=== PATIENT | female | born 1985 | race Caucasian/White ===

== ENCOUNTER 2023-08-20 11:41 | Emergency (ER) | payer OTHER ==
[~2023-08-20] VITALS: Ht 170.2 cm; Wt 73.8 kg
[2023-08-20] MEDS ORDERED: FLUO20CA22 (11:56)
[2023-08-20] MEDS ORDERED: OLAN2.5T25 (11:56)
[2023-08-20] MEDS ORDERED: OXCA600T8 (11:56)
[2023-08-20] MEDS ORDERED: PREG150C2 (11:56)
[2023-08-20 13:28] LABS: BASO % 0.8 % (0.0-1.0); EOS # 0.1 10^3/uL (0.0-0.5); EOS % 1.5 % (0.0-3.0); HEMATOCRIT 38.8 % (36.0-47.0); HEMOGLOBIN 12.7 g/dl (12.0-15.5); LYMPH # 2.4 10^3/uL (1.5-5.0); LYMPH % 45.6 % (24.0-44.0); MEAN CORPUSCULAR HEMOGLOBIN 30.4 pg (27.0-33.0); MEAN CORPUSCULAR HGB CONC 32.7 g/dl (32.0-36.5); MEAN CORPUSCULAR VOLUME 92.8 fl (80.0-96.0); MONO # 0.5 10^3/uL (0.0-0.8); MONO % 9.1 % (2.0-8.0); NEUTROPHILS # 2.2 10^3/uL (1.5-8.5); NEUTROPHILS % 42.8 % (36.0-66.0); PLATELET COUNT, AUTOMATED 248 10^3/uL (150-450); RED BLOOD COUNT 4.18 10^6/uL (4.00-5.40); WHITE BLOOD COUNT 5.2 10^3/uL (4.0-10.0)
[2023-08-20 13:47] LABS: C REACTIVE PROTEIN QUANTITATIV < 0.40 MG/DL (<1.0); HCG, SERUM QUALITATIVE NEGATIVE (NEGATIVE)
[2023-08-20 13:48] LABS: BLOOD UREA NITROGEN 12 MG/DL (9-23); CARBON DIOXIDE LEVEL 26 MMOL/L (20-31); CHLORIDE LEVEL 104 MMOL/L (98-107); CREATININE FOR GFR 0.79 MG/DL (0.55-1.30); GLOMERULAR FILTRATION RATE > 60.0 (>60); GLUCOSE, FASTING 76 MG/DL (60-100); POTASSIUM SERUM 4.5 MMOL/L (3.5-5.1); SODIUM LEVEL 136 MMOL/L (136-145)
[2023-08-20] MEDS ORDERED: ISOVUE-370 76% 100ML VIAL As Ordered ONE (15:10)
[2023-08-20 15:50] LABS: ERYTHROCYTE SEDIMENTATION RATE 14 mm/hr (0-20)
[2023-08-20] MEDS: dexAMETHasone 20MG/5ML VIAL IV ONE (15:52)
[2023-08-20] MEDS: NS 1,000 ML IV ONE (15:52)
[2023-08-20] MEDS: AMPICILLIN SOD/SULBACTAM SOD 3 GM in D5W MINI-BAG PLUS 100 ML IV ONE (15:52)
[2023-08-20] MEDS ORDERED: AMOX875T2 PO (16:57)
[2023-08-20 16:59] VITALS: BP 137/83; TEMP 96; O2SAT 98
== END 2023-08-20 17:33 | disposition home or self-care (01) ==
LOC: M ED 14:51
DX: K02.9 Dental caries, unspecified (principal); J32.9 Chronic sinusitis, unspecified; Z88.8 Allergy status to other drugs, medicaments and biological substances; Z79.2 Long term (current) use of antibiotics; Z79.899 Other long term (current) drug therapy
CPT/HCPCS: 70487; 80048; 84703; 85025; 85652; 86140; 96361; 96365; 96374; 99284; J0295; J1100; Q9967

== ENCOUNTER → 2023-10-21 | Outpatient (REF) | payer OTHER ==
[~2023-10-21] MED LIST: AMOX875T2 PO; FLUO-365; OLAN2.5T25; OXCA600T8; PREG150C2
== END ==
LOC: M LAB REF 16:16
PROVIDERS: ATTEND Nurse Practitioner Family
DX: R30.0 Dysuria (principal)

== ENCOUNTER → 2023-12-16 | Outpatient (REF) | payer OTHER | LOC: M LAB REF 12:24 | PROVIDERS: ATTEND Pediatrics | DX: R30.0 Dysuria (principal) ==

== ENCOUNTER 2023-12-24 11:42 | Emergency (ER) | payer OTHER ==
[~2023-12-24] VITALS: Ht 170.2 cm; Wt 78.0 kg
[2023-12-24] MEDS ORDERED: AMOX500C PO (12:03)
[2023-12-24] MEDS ORDERED: METH10CO3 PO (12:03)
[2023-12-24 15:39] LABS: BASO % 0.6 % (0.0-1.0); EOS # 0.1 10^3/uL (0.0-0.5); EOS % 1.1 % (0.0-3.0); HEMATOCRIT 39.2 % (36.0-47.0); LYMPH # 2.3 10^3/uL (1.5-5.0); LYMPH % 49.2 % (24.0-44.0); MEAN CORPUSCULAR HEMOGLOBIN 30.4 pg (27.0-33.0); MEAN CORPUSCULAR HGB CONC 33.2 g/dl (32.0-36.5); MEAN CORPUSCULAR VOLUME 91.8 fl (80.0-96.0); MONO # 0.4 10^3/uL (0.0-0.8); MONO % 8.6 % (2.0-8.0); NEUTROPHILS # 1.9 10^3/uL (1.5-8.5); NEUTROPHILS % 40.3 % (36.0-66.0); PLATELET COUNT, AUTOMATED 255 10^3/uL (150-450); RED BLOOD COUNT 4.27 10^6/uL (4.00-5.40); WHITE BLOOD COUNT 4.6 10^3/uL (4.0-10.0)
[2023-12-24 15:50] LABS: ERYTHROCYTE SEDIMENTATION RATE 16 mm/hr (0-20)
[2023-12-24 15:56] LABS: BLOOD UREA NITROGEN < 5 MG/DL (9-23); CALCIUM LEVEL 7.8 MG/DL (8.5-10.1); CARBON DIOXIDE LEVEL 27 MMOL/L (20-31); CHLORIDE LEVEL 105 MMOL/L (98-107); CREATININE FOR GFR 0.79 MG/DL (0.55-1.30); GLOMERULAR FILTRATION RATE > 60.0 (>60); GLUCOSE, FASTING 90 MG/DL (60-100); HCG, SERUM QUANTITATIVE < 2.6 MIU/ML (<4.2); POTASSIUM SERUM 3.9 MMOL/L (3.5-5.1); SODIUM LEVEL 138 MMOL/L (136-145)
[2023-12-24] MEDS ORDERED: ISOVUE-370 76% 100ML VIAL As Ordered ONE (16:01)
[2023-12-24] MEDS: AMPICILLIN SOD/SULBACTAM SOD 3 GM in D5W MINI-BAG PLUS 100 ML IV ONE (16:39)
[2023-12-24] MEDS: KETOROLAC 30 MG/ML 1ML VIAL IV ONE (16:39)
[2023-12-24] MEDS: fentaNYL 100 MCG/2 ML INJECTION IV ONE (17:39)
[2023-12-24] MEDS: NS 1,000 ML IV ONE (17:42)
[2023-12-24] MEDS ORDERED: AMOX875T2 PO (18:49)
[2023-12-24 19:07] VITALS: BP 121/73; TEMP 97.3; O2SAT 100
== END 2023-12-24 19:12 | disposition home or self-care (01) ==
LOC: M ED 11:42
DX: L03.211 Cellulitis of face (principal); K50.90 Crohn's disease, unspecified, without complications; M79.7 Fibromyalgia; Z88.5 Allergy status to narcotic agent; Z79.2 Long term (current) use of antibiotics; Z79.899 Other long term (current) drug therapy
CPT/HCPCS: 70487; 80048; 84702; 85025; 85652; 86140; 96374; 96375; 99284; J0295; J1885; J3010; Q9967